=== PATIENT | female | born 1985 | race American Indian/Alaskan Native ===

== ENCOUNTER 2017-11-05 13:58 | Emergency (ER) | payer SELFPAY ==
--- NOTE | 2017-11-05 20:18 | Emergency Department Report ---
Vomiting/Diarrhea - [facility] Chief Complaint: Nausea/Vomiting/Diarrhea Stated Complaint: ACID REFLEX Time Seen by Provider: 11/05/17 20:12 Duration: Today Severity: severe Nausea/Vomiting Severity: Moderate Diarrhea Severity: None Pain Location: Epigastric Pain Severity: Moderate Symptoms: Yes Able to Tolerate Fluids, No Watery Diarrhea, No Bloody diarrhea, No Fever, No Recent Unusual Foods, No Recent Untreated Water, No Recent use of Antibiotics, No Family w/ Similar Symptoms, No Contacts w/ Similar Symptoms, No Rash, No Hematuria, No Recent URI Symptoms Other History: 32-year-old female recently moved here to [facility] and states that she has a history of acid reflux and has been out of her medication. Patient states that she has been vomiting since this morning but does not know the name of her prescription medication. Patient has no allergies to medication past medical history of acid reflux currently was taking Dexilant and famotidine and Zofran. ED Review of Systems ROS: Stated complaint: ACID REFLEX Other details as noted in HPI ED Past Medical Hx - Past Medical History Previous Medical History?: Yes Additional medical history: Acid Reflux - Surgical History Past Surgical History?: No - Social History Smoking Status: Never Smoker Substance Use Type: None - Medications Home Medications: Home Medications Medication Instructions Recorded Confirmed Last Taken Type Dexlansoprazole [Dexilant] 30 mg PO QDAY 30 Days #30 cap 11/05/17 Unknown Rx Famotidine [Pepcid] 20 mg PO BID #60 tablet 11/05/17 Unknown Rx Ondansetron [Zofran Odt] 4 mg PO Q8H #12 tab.rapdis 11/05/17 Unknown Rx Vomiting Diarrhea Exam - Exam General: Vital signs noted. No distress. Alert and acting appropriately. HEENT: Yes Moist Mucous Membranes, No Pharyngeal Erythema, No Pharyngeal Exudates, No Rhinorrhea, No Conjuctival Injection, No Frontal Tenderness, No Maxillary Tenderness Heart exam: Regular: Yes, Murmur: No, Tachycardia: No Abdomen: Tenderness: No, Peritoneal Signs: No, Distention: No, Hyperactive Bowel sounds: No Skin exam: Rash: No, Edema: No, Normal turgor: Yes Neurologic: Alert and oriented, no deficits. Musculoskeletal: Unremarkable. ED Course Vital Signs 11/05/17 14:30 Temperature 99.2 F Pulse Rate 64 Respiratory 18 Rate Blood Pressure 101/71 O2 Sat by Pulse 100 Oximetry Critical care attestation.: If time is entered above; I have spent that time in minutes in the direct care of this critically ill patient, excluding procedure time. ED Disposition Clinical Impression: GERD (gastroesophageal reflux disease) Qualifiers: Esophagitis presence: without esophagitis Qualified Code(s): K21.9 - Gastro- esophageal reflux disease without esophagitis Disposition: TO HOME OR SELFCARE Is pt being admited?: No Does the pt Need Aspirin: No Condition: Stable Instructions: Gastroesophageal Reflux Disease (ED) Additional Instructions: Please take medications as prescribed. It is imperative that she follow-up with the primary care provider and investment sales assistant. I have listed their information below. Prescriptions: Dexlansoprazole [Dexilant] 30 mg PO QDAY 30 Days #30 [place]by. Famotidine [Pepcid] 20 mg PO BID #60 tablet Ondansetron [Zofran Odt] 4 mg PO Q8H #12 tab.rapdis Referrals: PRIMARY CARE, [Primary Care Provider] - 3-5 Days [facility] [Provider Group] - 3-5 Days [facility] [Provider Group] - 3-5 Days
[2017-11-05] MEDS ORDERED: ZOFRAN ODT PO ONE (20:24)
[2017-11-05] MEDS ORDERED: PROTONIX PO ONE (20:24)
[2017-11-05] MEDS ORDERED: PEPCID PO ONE (20:24)
[2017-11-05 20:46] VITALS: BP 109/80
== END 2017-11-05 20:43 | disposition home or self-care (01) ==
LOC: ED 13:58
DX: K21.9 Gastro-esophageal reflux disease without esophagitis (principal)
CPT/HCPCS: 99282; Q0162

== ENCOUNTER 2019-01-01 00:17 | Emergency (ER) | payer OTHER ==
[2019-01-01 00:29] VITALS: BP 101/47
[2019-01-01 04:58] LABS: Basophils # (Auto) 0.1 K/mm3 (0.0-0.1); Eosinophils # (Auto) 0.3 K/mm3 (0.0-0.4); Eosinophils % (Auto) 4.5 % (0.0-4.3); Hematocrit 23.8 % (30.3-42.9); Hemoglobin 8.1 gm/dl (10.1-14.3); Lymphocytes # (Auto) 1.5 K/mm3 (1.2-5.4); Lymphocytes % (Auto) 24.8 % (13.4-35.0); Mean Corpuscular HGB Conc 34 % (30-34); Mean Corpuscular Volume 105 fl (79-97); Monocytes # (Auto) 0.4 K/mm3 (0.0-0.8); Monocytes % (Auto) 6.4 % (0.0-7.3); Platelet Count 234 K/mm3 (140-440); Red Blood Count 2.27 M/mm3 (3.65-5.03); Red Cell Distribution Width 12.9 % (13.2-15.2)
--- NOTE | 2019-01-01 07:08 | Vascular Lab Report ---
DUPLEX DOPPLER LOWER EXTREMITY VEINS, RIGHT INDICATION: swelling to right leg. TECHNIQUE: Duplex doppler imaging was performed through the veins of the right lower extremity using venous comp ression and other maneuvers. COMPARISON: No relevant prior imaging study available. FINDINGS: Right Common femoral vein: Negative. Right Superficial femoral vein: Negative. Right Popliteal vein: Negative. Right Calf veins: Negative. Additional findings: Soft tissue swelling.. IMPRESSION: 1. Negative for DVT. 2. Soft tissue swelling. Signer Name: Gatito Cross MD Signed: 01/01/2019 7:03 AM Workstation Name: [id number]
--- NOTE | 2019-01-01 07:21 | Emergency Department Report ---
ED General Adult HPI - General Chief complaint: Extremity Injury, Lower Stated complaint: LEFT FOOT SWOLLEN Time Seen by Provider: 01/01/19 02:54 Source: patient Mode of arrival: Ambulatory Limitations: No Limitations - History of Present Illness Initial comments: 33-year-old -[place] female 2 days status post . At [facility] presents to the emergency department complaining of swelling to her right foot associated swelling to her right lower extremity. . There is no knee bilateral swelling, no fever, chest pain, shortness of breath. No hypertension no headache or blurred vision. She reports no bleeding from her incision site to her knowledge and no known trauma. - Related Data Previous Rx's Medication Instructions Recorded Last Taken Type Dexlansoprazole [Dexilant] 30 mg PO QDAY 30 Days #30 11/05/17 Unknown Rx Famotidine [Pepcid] 20 mg PO BID #60 tablet 11/05/17 Unknown Rx Ondansetron [Zofran Odt] 4 mg PO Q8H #12 tab.rapdis 11/05/17 Unknown Rx Allergies Allergy/AdvReac Type Severity Reaction Status Date / Time No Known Allergies Allergy Verified 01/01/19 00:21 ED Review of Systems ROS: Stated complaint: LEFT FOOT SWOLLEN Other details as noted in HPI Comment: All other systems reviewed and negative ED Past Medical Hx - Past Medical History Previous Medical History?: No Additional medical history: Acid Reflux - Surgical History Past Surgical History?: Yes Additional Surgical History: - Social History Smoking Status: Never Smoker Substance Use Type: None - Medications Home Medications: Home Medications Medication Instructions Recorded Confirmed Last Taken Type Dexlansoprazole [Dexilant] 30 mg PO QDAY 30 Days #30 11/05/17 Unknown Rx Famotidine [Pepcid] 20 mg PO BID #60 tablet 11/05/17 Unknown Rx Ondansetron [Zofran Odt] 4 mg PO Q8H #12 tab.rapdis 11/05/17 Unknown Rx ED Physical Exam - General Limitations: No Limitations General appearance: alert, in no apparent distress, appears intoxicated, anxious - Head Head exam: Present: atraumatic, normocephalic - Eye Eye exam: Present: normal appearance, PERRL, EOMI Pupils: Present: normal accommodation - ENT ENT exam: Present: normal exam, mucous membranes dry, mucous membranes moist, TM's normal bilaterally - Neck Neck exam: Present: normal inspection, full ROM - Respiratory Respiratory exam: Present: normal lung sounds bilaterally. Absent: respiratory distress, wheezes, rales, chest wall tenderness, accessory muscle use, decreased breath sounds - Cardiovascular Cardiovascular Exam: Present: regular rate, normal rhythm. Absent: systolic murmur, diastolic murmur, rubs, gallop - GI/Abdominal GI/Abdominal exam: Present: soft, normal bowel sounds - Extremities Exam Extremities exam: Present: normal inspection, pedal edema (nonpitting edema to the right lower extremity around the area of the ankle and the foot pulses 2+ capillary refill is brisk no popliteal mass. And popliteal pulses are normal. There is no cellulitis noted. No Homans sign, no cords sign.), joint swelling - Back Exam Back exam: Present: normal inspection. Absent: CVA tenderness (R), CVA tenderness (L) - Neurological Exam Neurological exam: Present: alert, oriented X3, CN II-XII intact, normal gait - Psychiatric Psychiatric exam: Present: normal affect, normal mood - Skin Skin exam: Present: warm, dry, intact, normal color. Absent: rash ED Course Vital Signs 01/01/19 00:21 Temperature 98.5 F Pulse Rate 76 Respiratory 16 Rate Blood Pressure 101/47 O2 Sat by Pulse 99 Oximetry ED Medical Decision Making - Lab Data Result diagrams: 01/01/19 04:28 - Radiology Data Radiology results: report reviewed Right lower extremity Venous Doppler is negative for DVT there is some mild soft tissue swelling noted. - Medical Decision Making 33-year-old female status post at [facility] and presenting with a right lotion to swelling. She states that this worked nicely started while she was at [facility] but continue to evolve up since her discharge and grew out more swollen and tight today there is minimal pain associated. She did see denies any trauma. No fever, chills, sweats no chest pain palpitations no shortness of breath. This patient presents with posterior tenderness swelling of unclear etiology. Their evaluation has not identified a emergent etiology for the lower extremity edema. Specifically, given the very benign exam, laboratory studies, and normal ultrasound, I have a very low suspicion for any life threatening disease. explained the need to follow-up as noted on the discharge instructions, or return to the Emergency Department immediately if the pain worsens, Although the tests in the ED were essentially normal, there is still a possibility of a process which could subsequently cause disability or . The patient understands that they must return within 24 hours for a recheck or see their physician within 24 hours for re-exam due to the possibility of significant surgical or medical proces Critical care attestation.: If time is entered above; I have spent that time in minutes in the direct care of this critically ill patient, excluding procedure time. ED Disposition Clinical Impression: Swelling of lower extremity Disposition: DC-01 TO HOME OR SELFCARE Is pt being admited?: No Does the pt Need Aspirin: No Condition: Stable Instructions: Leg Edema (ED) Additional Instructions: Please alert [facility] physicians of your emergency room results. Your evaluation has not identified a emergent etiology for the above lower extremity swelling. Specifically, given the benign exam, normal ultrasound studies, and lack of significant risk factors, I have a very low suspicion for life threatening disease. Although the tests in the ED were essentially normal, there is still a possibility of a process such as cellulitis , eclampsia , venous insufficiency , and other processes on which could subsequently cause disability or . The patient understands that they must return within 24 hours for a recheck or see their physician within 24 hours for re-exam due to the possibility of significant surgical or medical process Referrals: [facility], [facility] [Provider Group] - 3-5 Days
== END 2019-01-01 07:54 | disposition home or self-care (01) ==
LOC: ED 00:17
DX: R22.41 Localized swelling, mass and lump, right lower limb (principal); Z79.899 Other long term (current) drug therapy
CPT/HCPCS: 36415; 85025; 85379; 99284

== ENCOUNTER 2021-06-27 13:13 | Emergency (ER) | payer SELFPAY ==
[2021-06-28 01:43] LABS: Basophils % (Auto) 0.5 % (0.0-1.8); Eosinophils # (Auto) 0.2 K/mm3 (0.0-0.4); Eosinophils % (Auto) 2.2 % (0.0-4.3); Hematocrit 37.9 % (30.3-42.9); Hemoglobin 12.5 gm/dl (10.1-14.3); Lymphocytes # (Auto) 1.7 K/mm3 (1.2-5.4); Lymphocytes % (Auto) 22.9 % (13.4-35.0); Mean Corpuscular HGB Conc 33 % (30-34); Mean Corpuscular Volume 107 fl (79-97); Monocytes # (Auto) 0.5 K/mm3 (0.0-0.8); Monocytes % (Auto) 7.3 % (0.0-7.3); Platelet Count 166 K/mm3 (140-440); Red Blood Count 3.55 M/mm3 (3.65-5.03); Red Cell Distribution Width 13.4 % (13.2-15.2)
--- NOTE | 2021-06-28 01:48 | Emergency Department Report ---
ED Chest Pain HPI - General Chief Complaint: Chest Pain Stated Complaint: HEART PAIN Time Seen by Provider: 06/28/21 01:11 Source: patient Mode of arrival: Ambulatory Limitations: No Limitations - History of Present Illness Initial Comments: Patient is a 36 years old female with no significant past medical history. Patient presented to the ER complaining of substernal chest pain, sharp in nature with no radiation. Patient stated that the pain has been going on for several days, intermittent. Patient stated that she recently started working out. She denied any shortness of breath, fever or chills. She also denied any nausea or vomiting or abdominal pain. MD Complaint: chest pain -: days(s) Onset: during rest Pain Location: substernal Pain Radiation: none Severity scale (0 -10): 0 Quality: sharp - Related Data Previous Rx's Medication Instructions Recorded Last Taken Type Dexlansoprazole [Dexilant] 30 mg PO QDAY 30 Days #30 cap 11/05/17 Unknown Rx Famotidine [Pepcid] 20 mg PO BID #60 tablet 11/05/17 Unknown Rx Ondansetron [Zofran Odt] 4 mg PO Q8H #12 tab.rapdis 11/05/17 Unknown Rx Allergies Allergy/AdvReac Type Severity Reaction Status Date / Time No Known Allergies Allergy Verified 01/01/19 00:21 Heart Score - HEART Score History: Slightly suspicious EKG: Normal Age: < 45 Risk factors: No known risk factors Troponin: < normal limit HEART Score: 0 - EKG Read Time Time EKG Completed: 14:21 EKG Read Time: 14:36 - Critical Actions Critical Actions: 0-3 pts:0.9-1.7%risk of adverse cardiac event.Candidate for discharge ED Review of Systems ROS: Stated complaint: HEART PAIN Other details as noted in HPI Comment: All other systems reviewed and negative Constitutional: denies: chills, fever Respiratory: denies: cough, shortness of breath, SOB with exertion, SOB at rest Cardiovascular: chest pain. denies: palpitations, dyspnea on exertion Gastrointestinal: denies: abdominal pain, nausea, vomiting, diarrhea, constipation, hematemesis, melena, hematochezia Musculoskeletal: denies: back pain Neurological: denies: headache, weakness ED Past Medical Hx - Past Medical History Additional medical history: Acid Reflux - Surgical History Additional Surgical History: - Social History Smoking Status: Never Smoker Substance Use Type: None - Medications Home Medications: Home Medications Medication Instructions Recorded Confirmed Last Taken Type Dexlansoprazole [Dexilant] 30 mg PO QDAY 30 Days #30 11/05/17 Unknown Rx Famotidine [Pepcid] 20 mg PO BID #60 tablet 11/05/17 Unknown Rx Ondansetron [Zofran Odt] 4 mg PO Q8H #12 tab.rapdis 11/05/17 Unknown Rx ED Physical Exam - General Limitations: No Limitations General appearance: alert, in no apparent distress - Head Head exam: Present: atraumatic, normocephalic, normal inspection - Eye Eye exam: Present: normal appearance, PERRL - ENT ENT exam: Present: normal exam, normal orophraynx, mucous membranes moist - Neck Neck exam: Present: normal inspection, full ROM. Absent: tenderness, meningismus - Respiratory Respiratory exam: Present: normal lung sounds bilaterally, chest wall tenderness - Cardiovascular Cardiovascular Exam: Present: regular rate, normal rhythm, normal heart sounds - GI/Abdominal GI/Abdominal exam: Present: soft, normal bowel sounds. Absent: distended, t enderness, guarding, rebound, rigid, hyperactive bowel sounds, hypoactive bowel sounds - Extremities Exam Extremities exam: Present: normal inspection, full ROM, normal capillary refill. Absent: tenderness - Back Exam Back exam: Present: normal inspection, full ROM. Absent: CVA tenderness (R), CVA tenderness (L) - Neurological Exam Neurological exam: Present: alert, oriented X3, CN II-XII intact, normal gait, reflexes normal. Absent: motor sensory deficit - Psychiatric Psychiatric exam: Present: normal mood - Skin Skin exam: Present: warm, intact, normal color ED Course Vital Signs 06/27/21 06/28/21 06/28/21 14:05 00:46 01:11 Temperature 98.5 F Pulse Rate 56 L 59 L Respiratory 18 12 Rate Blood Pressure 98/54 102/60 [Right] O2 Sat by Pulse 98 100 Oximetry 06/28/21 06/28/21 02:52 02:54 Temperature Pulse Rate 67 Respiratory 14 Rate Blood Pressure 94/62 [Right] O2 Sat by Pulse 100 100 Oximetry ED Medical Decision Making - Lab Data Result diagrams: 06/28/21 01:18 06/28/21 01:18 - EKG Data -: EKG Interpreted by Me EKG shows normal: sinus rhythm Rate: normal - EKG Data Interpretation: no acute changes - Radiology Data Radiology results: report reviewed - Medical Decision Making Patient is a 36 years old female with no significant past medical history. Patient presented to the ER complaining of substernal chest pain, sharp in nature with no radiation. Patient stated that the pain has been going on for several days, intermittent. Patient stated that she recently started working out. She denied any shortness of breath, fever or chills. She also denied any nausea or vomiting or abdominal pain. EKG is unremarkable. Labs reviewed and is unremarkable including a negative troponin. Heart score is 0. Patient pain is reproducible. Patient's symptoms most likely related to costochondritis however patient strongly advised to follow-up with her primary care physician for outpatient cardiac work-up. Thomas jean-baptiste advised to return to the ER if she develop any new symptoms. Critical care attestation.: If time is entered above; I have spent that time in minutes in the direct care of this critically ill patient, excluding procedure time. ED Disposition Clinical Impression: Acute chest pain, Acute costochondritis Disposition: HOME / SELF CARE / HOMELESS Is pt being admited?: No Condition: Stable Instructions: Chest Pain (ED), Costochondritis, [id number], Nonspecific Chest Pain, Adult Referrals: [facility] [Provider Group] - 3-5 Days
[2021-06-28 01:57] LABS: INR 0.91 (0.87-1.13)
[2021-06-28 01:58] LABS: Partial Thromboplastin Time 27.2 Sec. (24.2-36.6)
[2021-06-28 02:02] LABS: BUN/Creatinine Ratio 10; Blood Urea Nitrogen 8 mg/dL (7-17); Calcium 8.3 mg/dL (8.4-10.2); Hemolysis Index 5
--- NOTE | 2021-06-28 02:47 | XRay Report ---
CHEST 1 VIEW 06/28/2021 2:27 AM INDICATION / CLINICAL INFORMATION: Chest Pain. COMPARISON: None available. FINDINGS: SUPPORT DEVICES: None. HEART / MEDIASTINUM: No significant abnormality. LUNGS / PLEURA: No significant pulmonary or pleural abnormality. No pneumothorax. ADDITIONAL FINDINGS: No significant additional findings. IMPRESSION: 1. No acute findings. Signer Name: Jesus Jacinto DO Signed: 06/28/2021 2:43 AM Workstation Name: [id number]
[2021-06-28 02:54] VITALS: BP 94/62
== END 2021-06-28 04:43 | disposition home or self-care (01) ==
LOC: ED 13:13
DX: R07.9 Chest pain, unspecified (principal); M94.0 Chondrocostal junction syndrome [Tietze]
CPT/HCPCS: 36415; 71045; 80048; 83690; 84484; 84703; 85025; 85610; 85730; 93005; 99284